=== PATIENT | female | born 1970 | race Two or more races ===

== ENCOUNTER 2024-11-04 04:24 | Emergency (ER) | payer OTHER, MEDICAID, SELFPAY ==
[2024-11-04 04:25] VITALS: BMI 39.1
[2024-11-04 04:38] VITALS: BP 159/84; PULSE 55; RESP 18; TEMP 36.5; O2SAT 98
--- NOTE | 2024-11-04 05:03 | XR_ITS ---
Examination: Knee, left , 3 views Technique: Knee AP, lateral, oblique 3 views Date and time of exam: November 04, 2024 0514 hours INDICATIONS: Injury to the knee today with pain and swelling FINDINGS: Moderate osteopenia. Total left knee arthroplasty. Satisfactory alignment No acute fracture IMPRESSION: No acute fracture
--- NOTE | 2024-11-04 05:03 | PD.EDRME ---
Rapid Medical Screening Exam [facility] Arrival date/time: 11/04/24 04:24 54F with history of L knee replacement presents to ED with L knee pain after she banged it against something. Chief Complaint: Extremity Injury, Lower Vital signs: Vital Signs Temperature 97.7 F 11/04/24 04:38 Pulse Rate 55 L 11/04/24 04:38 Respiratory Rate 18 11/04/24 04:38 Blood Pressure 159/84 H 11/04/24 04:38 Pulse Oximetry (%) 98 11/04/24 04:38 Oxygen Delivery Method Room Air 11/04/24 04:38
--- NOTE | 2024-11-04 07:48 | EDNOTE_ITS ---
<Statement entered by Frieda Babb MD - 11/04/24 16:19> As co-signing physician, I was present and available for consult prn. I concur with the plan and care as documented by the midlevel provider. Lower Extremity Injury RME/HPI General Chief Complaint: Extremity Injury, Lower Stated Complaint: PAIN IN LEFT LEG Time Seen by Provider: 11/04/24 07:52 Source: patient Arrival date/time: 11/04/24 04:24 This is a 54-year-old female presents to the emergency department with complaints of left knee pain. Pt reports she was attempting to get out of the bath, hit her knee on the faucet. + Ecchymosis tenderness. Patient is worried because she has had a previous knee replacement. Mode of arrival: ambulatory Limitations: no limitations RME / HPI RME / HPI Narrative: 11/04/24 04:24 54F with history of L knee replacement presents to ED with L knee pain after she banged it against something. Related Data Previous Rx's ?Medication ?Instructions ?Recorded acetaminophen 500 mg capsule 1,000 mg (2 x 500 mg) PO Q8HR PRN 04/28/20 pain #60 caps ibuprofen 800 mg tablet 800 mg PO TID PRN pain #30 t abs 04/28/20 ibuprofen 800 mg tablet 800 mg PO Q8H PRN pain #20 t abs 06/21/20 ibuprofen 800 mg tablet 800 mg PO TID PRN pain #30 t abs 02/10/21 amoxicillin 500 mg tablet 500 mg PO TID #21 tabs 02/09 Allergies Allergy/AdvReac Type Severity Reaction Status Date / Time No Known Allergies Allergy Verified 02/10/21 16:37 Review of Systems Review of Systems Systems Reviewed: All systems reviewed, normal except as documented Narrative Review of Systems: Gen: No fever, no chills, no weight loss EYES: No discharge, no visual changes, no pain HEENT: No ear pain, no congestion, no sore throat PULM: No shortness of breath, no cough, no congestion CV: No chest pain, no dyspnea on exertion, no palpitations GI: No nausea, no vomiting, no diarrhea, no pain, no constipation : No frequency, no urgency,? no dysuria Musc/skel: anterion knee pain, no back pain Skin: No rash? ED Exam General Limitations: Present no limitations General appearance: Present alert and in no apparent distress Head Head exam: Present atraumatic Eye Eye exam: Present normal appearance, PERRL and EOMI ENT ENT exam: Present normal exam, normal oropharynx and mucous membranes moist Neck Neck exam: Present normal inspection, full ROM and trachea midline Chest Chest inspection: Present normal inspection and symmetric chest wall rise Respiratory Respiratory exam: Present normal lung sounds bilaterally Cardiovascular Cardiovascular exam: Present regular rate, normal rhythm and normal heart sounds Abdominal Exam Abdominal exam: Present soft and normal bowel sounds; Absent distention, tenderness or guarding Extremities Exam Extremities exam: Present full ROM and normal capillary refill Expanded Lower Extremity Exam Hip/Pelvis exam: Present normal inspection Upper leg exam: Present normal inspection Knee exam: Present tenderness, swelling and ecchymosis Back Exam Back exam: Present normal inspection and full ROM Neurological Exam Neurological exam: Present alert, oriented X3 and CN II-XII intact Psychiatric Psychiatric exam: Present normal affect and normal mood Skin Skin exam: Present warm, dry, intact and normal color Course Quality Measures none Orders Category Date Time Status XR knee LT 3V Stat Exams 11/04/24 05:03 Completed Vital Signs Vital signs: Vital Signs Temperature 97.7 F 11/04/24 04:38 Pulse Rate 55 L 11/04/24 04:38 Respiratory Rate 18 11/04/24 04:38 Blood Pressure 159/84 H 11/04/24 04:38 Pulse Oximetry (%) 98 11/04/24 04:38 Oxygen Delivery Method Room Air 11/04/24 04:38 Extremity Injury, Lower MDM Narrative MDM Narrative:: Knee contusion. Patient data External records reviewed:: [facility] previous records Clinical information provided by:: patient Social determinants that could affect healthcare access:: none Patient has the following chronic illnesses:: no How is presenting disease/condition affected by chronic disease/condition?: no chronic disease Evaluation data The following diagnostics were reviewed and interpreted by me:: radiology exam(s) Lab and/or radiology exams considered but not ordered:: no Interpretation Summary: Examination: Knee, left , 3 views Technique: Knee AP, lateral, oblique 3 views Date and time of exam: November 04, 2024 0514 hours INDICATIONS: Injury to the knee today with pain and swelling FINDINGS: Moderate osteopenia. Total left knee arthroplasty. Satisfactory alignment No acute fracture IMPRESSION: No acute fracture Medications / Prescriptions Medications or Prescriptions considered but not ordered:: no Medication administrations:: no Consultations Consultation(s) initiated? (list below): No Diagnosis Extremity Injury, Lower Differential Diagnosis: other (Knee contusion, knee fracture, patella dislocation) Most likely diagnosis given after review of the tests above:: Knee contusion Admission Indicated Admission indicated?: not indicated Admission Request Was there a request for admission?: No Disposition Plan Disposition Plan: Discharge Discharge Attestation Discharge Attestation: The patient and all family members were given an opportunity to ask questions and understood the discharge instructions. Discharge instructions specifically effects, indications for sooner follow up or return to the emergency department, and the expected course of current diagnosis. Patient condition: Stable Discharge Plan Plan Patient Disposition: HOME (Self Care) Patient condition on transfer: Stable Prescriptions/Referrals Prescriptions/Med Rec: No Action ibuprofen 800 mg tablet 800 mg PO Q8H PRN (Reason: pain) Qty: 20 0RF ibuprofen 800 mg tablet 800 mg PO TID PRN (Reason: pain) Qty: 30 0RF acetaminophen 500 mg capsule 1,000 mg PO Q8HR PRN (Reason: pain) Qty: 60 0RF ibuprofen 800 mg tablet 800 mg PO TID PRN (Reason: pain) Qty: 30 0RF amoxicillin 500 mg tablet 500 mg PO TID Qty: 21 0RF Referrals: Marcus (PCP)Oscar MD [Primary Care Provider] - In 1 week Problem List Clinical Impression: Contusion of knee Patient/Caregiver Discharge Instructions Discharge Activity: activity as tolerated Education Materials: ED Soft Tissue Contusion Additional Instructions: Simms radiograf?a es completamente normal. Se trata de sofia contusi?n de tejidos blandos. Puede aplicar hielo, no directamente sobre la piel, 3 veces al d?a. [place] ibuprofeno para el dolor con las comidas, seg?n las indicaciones. Regrese a urgencias ante cualquier empeoramiento de los s?ntomas o cualquier cambio en simms estado. Your x-ray is completely normal. This is a soft tissue contusion. Can apply ice not directly on skin 3 times a day Take ibuprofen for pain with food. As directed Return to the emergency department this any worsening symptoms change in condition. Print Language: Bengali Stand Alone Forms: [employer] Info., Patient Portal Info Letter PA/INVESTOR RELATIONS MANAGER Supervising Physician PA/INVESTOR RELATIONS MANAGER Supervising Physician: MAX
== END 2024-11-04 09:26 | disposition home or self-care (01) ==
PROVIDERS: Emergency Provider Emergency Medicine; PCP Family Medicine
DX: S80.02XA Contusion of left knee, initial encounter (principal); W22.8XXA Striking against or struck by other objects, initial encounter
CPT/HCPCS: 73562; 99283

== ENCOUNTER → 2024-12-30 | Outpatient (CLI) | payer OTHER, MEDICAID, SELFPAY ==
--- NOTE | 2024-12-30 12:00 | XR_ITS ---
Examination: Abdomen sonogram, complete Date and time of exam: December 31, 1999 2512 noon INDICATIONS: Gallbladder internal echogenic structures on CT chest February 10, 2024. Technique: Multiple real-time grayscale transabdominal sonographic images of the abdomen have been obtained. Findings: 0.1 mm gallstone Gallbladder wall 0.3 cm Common bile duct 0.6 cm Pancreatic head 2.9 cm Aorta not enlarged. Liver 18.4 cm fatty infiltration Normal hepatopedal portal venous flow Patent IVC Right kidney 10.1 cm cortex 1.4 cm Left kidney 10.7 cm cortex 2.2 cm Mild bilateral renal parenchymal scar formation Spleen 11.3 cm IMPRESSION: Cholelithiasis, negative for cholecystitis Mild hepatomegaly fatty liver
== END | disposition home or self-care (01) ==
PROVIDERS: PCP Family Medicine; Referring Provider Student in an Organized Health Care Education/Training Program; Visit Provider Student in an Organized Health Care Education/Training Program
DX: K80.20 Calculus of gallbladder without cholecystitis without obstruction (principal); K76.0 Fatty (change of) liver, not elsewhere classified
CPT/HCPCS: 76700

== ENCOUNTER 2025-01-20 09:55 | Day surgery (SDC) | payer OTHER, MEDICAID, SELFPAY ==
--- NOTE | 2025-01-18 11:37 | EKG_ITS ---
[facility] Test Date: 2025-01-18 Pat Name: URI QUEZADA Department: Room: - Gender: Female Eviction Specialist: TERRY : 1970 Requested By: Deanne Palafox Order Number: [id number] Reading MD: Deanne Palafox Measurements Intervals [place] Rate: 50 P: 56 WI: 182 QRS: 29 QRSD: 105 T: 59 QT: 466 QTc: 427 Interpretive Statements SINUS BRADYCARDIA LOW QRS VOLTAGE IN PRECORDIAL LEADS [QRS DEFLECTION < 1.0 mV IN CHEST LEADS] Compared to ECG 02/09/2024 21:07:26 Sinus rhythm no longer present Incomplete right bundle-branch block no longer present /store/S0/[id number]/[id number].pdf
[2025-01-18 11:45] LABS: Alanine Aminotransferase 14 U/L (10-49); Albumin, Serum 4.1 gm/dL (3.5-5.0); Albumin/Globulin Ratio 1.8 (1.2-2.2); Alkaline Phosphatase 77 U/L (46-116); Anion Gap 11 (7-16); BUN/Creatinine Ratio 26 Ratio (12-20); Bilirubin,Total 0.6 mg/dL (0.3-1.2); Blood Urea Nitrogen 13 mg/dL (9-23); Carbon Dioxide 27.4 mMol/L (20.0-31.0); Chloride 108 mMol/L (98-107); Creatinine (Component) 0.5 mg/dL (0.6-1.3); Globulin 2.3 gm/dL (2.3-3.5); Glucose 92 mg/dL (74-106); Osmolality,Calculated 290 (275-295); Sodium 146 mMol/L (136-145); Total Protein 6.4 gm/dL (5.7-8.2); eGFR > 60 See Note
[2025-01-18 11:53] LABS: HCG,Qualitative Serum Negative
[2025-01-18 12:01] LABS: Partial Thromboplastin Time 29.4 Seconds (22.0-36.0); Prothrombin Time 11.1 Seconds (9.0-12.2)
[2025-01-19 15:37] VITALS: BMI 43.8
[2025-01-20] MEDS: RINGERS LACTATED 1000 ML 1,000 ML 125 ML IV (10:35)
[2025-01-20 10:39] VITALS: BP 124/63; PULSE 60; RESP 18; TEMP 36.5; O2SAT 98; BMI 44.6
[2025-01-20 11:30] VITALS: BP 127/61; PULSE 56; RESP 16; TEMP 36.6; O2SAT 95
[2025-01-20 11:40] VITALS: BP 145/82; PULSE 54; RESP 14; O2SAT 97
[2025-01-20 11:50] VITALS: BP 150/78; PULSE 52; RESP 14; O2SAT 97
--- NOTE | 2025-01-20 11:58 | SUR.PHASEII ---
1200 Pt more awake and alert. Via [place] speaker-pt denies pain, N/V or difficulty swallowing. Brian PO fluids.
[2025-01-20 12:00] VITALS: BP 135/82; PULSE 59; RESP 18; TEMP 36.6; O2SAT 97
== END 2025-01-20 12:20 | disposition home or self-care (01) ==
PROVIDERS: PCP Family Medicine; Referring Provider Specialist; Visit Provider Specialist
PROC: 0DBE8ZX Excision of Large Intestine, Via Natural or Artificial Opening Endoscopic, Diagnostic (ICD-10-PCS; CPT 45380; principal; 2025-01-20 10:30)
PROC: (CPT 43239; 2025-01-20 10:30)
DX: Z12.11 Encounter for screening for malignant neoplasm of colon (principal); Z01.810 Encounter for preprocedural cardiovascular examination; K64.9 Unspecified hemorrhoids
CPT/HCPCS: 45378; 36415; 80053; 81025; 84703; 85610; 85730; 93005; J7120

== ENCOUNTER → 2025-04-21 | Outpatient (CLI) | payer OTHER, MEDICAID, SELFPAY ==
[2025-04-21 09:04] LABS: Collection Type, Urine Clean Catch
[2025-04-21 09:31] LABS: Basophils # (Auto) 0.0 Thou/mm3 (0.0-0.2); Basophils % (Auto) 1 % (0-2.5); Eosinophils # (Auto) 0.1 Thou/mm3 (0.0-0.5); Eosinophils % (Auto) 3 % (0-10); Hematocrit 39.6 % (36.0-46.0); Hemoglobin 13.1 g/dL (12.0-16.0); Immature Granulocytes Auto 0.01 Thou/mm3 (0.00-0.00); Lymphocytes # (Auto) 1.8 Thou/mm3 (1.0-4.8); Lymphocytes % (Auto) 41 % (10-50); Mean Corpuscular HGB Conc 33.1 g/dl (31.0-37.0); Mean Corpuscular Hemoglobin 30.2 pg (25.0-35.0); Mean Corpuscular Volume 91 fL (80-100); Monocytes # (Auto) 0.4 Thou/mm3 (0.0-0.8); Monocytes % (Auto) 8 % (0-12); Neutrophils # (Auto) 2.1 Thou/mm3 (1.8-7.7); Neutrophils % (Auto) 48 % (37-80); Nucleated Red Blood Cell # 0.00 Thou/mm3 (0.00-0.00); Nucleated Red Blood Cell % 0 /100 WBC (0); Platelet Count 211 Thou/mm3 (140-440); RDW Standard Deviation 40.9 fL (36.4-46.3); Red Blood Count 4.34 Miln/mm3 (4.00-5.20); White Blood Count 4.4 Thou/mm3 (3.6-11.0)
[2025-04-21 09:40] LABS: Bilirubin,Urine Negative (Negative); Blood,Urine Trace (Negative); Clarity,Urine Clear (Clear/Hazy); Color,Urine Lt-Yellow (Lt Yel-Yel); Culture Indicated,Urine Not Indicated; Glucose, Urine Negative (Negative); Hyaline Casts,Urine < 1 /hpf (0-1); Ketones,Urine Negative (Negative); Leukocyte Esterase,Urine Positive (Negative); Nitrite,Urine Negative (Negative); PH,Urine 5.5 (5.0-7.0); Protein,Urine Negative (Neg - Trace); RBC,Urine 6 /hpf (0-3); Specific Gravity,Urine 1.022 (1.001-1.035); Squamous Epithelial Cell,Urine 4 /hpf (0-5); Urobilinogen,Urine Negative mg/dL (0.0-1.0); WBC,Urine 9 /hpf (0-5)
[2025-04-21 09:48] LABS: Vitamin D 25 Hydroxy Total 25.7 ng/mL (7.3-40.2)
[2025-04-21 09:54] LABS: Alanine Aminotransferase 17 U/L (10-49); Albumin, Serum 4.3 gm/dL (3.5-5.0); Albumin/Globulin Ratio 1.7 (1.2-2.2); Alkaline Phosphatase 76 U/L (46-116); Anion Gap 10 (7-16); Aspartate Amino Transferase 25 U/L (0-34); BUN/Creatinine Ratio 19 Ratio (12-20); Bilirubin,Total 0.6 mg/dL (0.3-1.2); Blood Urea Nitrogen 15 mg/dL (9-23); Calcium 9.8 mg/dL (8.3-10.6); Calcium (Corrected) 9.8 mg/dL (8.5-10.1); Carbon Dioxide 25.8 mMol/L (20.0-31.0); Cardiac Risk Estimate 5.4 RATIO (3.7-5.6); Chloride 108 mMol/L (98-107); Cholesterol 238 mg/dL (132-200); Creatinine (Component) 0.8 mg/dL (0.6-1.3); Globulin 2.5 gm/dL (2.3-3.5); Glucose 96 mg/dL (74-106); HDL Cholesterol 44 mg/dL (40-60); LDL Cholesterol,Calculated 180 mg/dL (0-130); Osmolality,Calculated 287 (275-295); Potassium 4.3 mMol/L (3.4-5.1); Sodium 144 mMol/L (136-145); Thyroid Stimulating Hormone 2.05 uIU/mL (0.55-4.78); Total Protein 6.8 gm/dL (5.7-8.2); Triglycerides 69 mg/dL (30-150); eGFR > 60 See Note
[2025-04-26 06:31] LABS: Fecal Globin Result NOT DETECTED (NOT DETECTED)
== END | disposition home or self-care (01) ==
LOC: COPL 07:30
PROVIDERS: PCP Family Medicine; Referring Provider Family Medicine; Visit Provider Family Medicine
DX: Z00.00 Encounter for general adult medical examination without abnormal findings (principal); M08.00 Unspecified juvenile rheumatoid arthritis of unspecified site; R53.83 Other fatigue; E55.9 Vitamin D deficiency, unspecified; N39.0 Urinary tract infection, site not specified; E78.5 Hyperlipidemia, unspecified; Z13.0 Encounter for screening for diseases of the blood and blood-forming organs and certain disorders involving the immune mechanism; Z13.29 Encounter for screening for other suspected endocrine disorder; Z13.21 Encounter for screening for nutritional disorder; Z13.1 Encounter for screening for diabetes mellitus; Z13.89 Encounter for screening for other disorder
CPT/HCPCS: 36415; 80053; 80061; 81001; 82274; 82306; 84443; 85025; G0328